=== PATIENT | male | born 1965 | race Caucasian/White ===

== ENCOUNTER 2017-12-17 10:54 | Emergency (ER) | payer OTHER, SELFPAY ==
[2017-12-17 10:57] VITALS: BP 128/80; PULSE 77; RESP 18; TEMP 36.2; O2SAT 97; BMI 35.7
--- NOTE | 2017-12-17 11:15 | ED.VISSUMM ---
- ER Visit Summary Date of Service: 12/17/17 Chief Complaint: Sore throat and ear pain History of Present Illness: The patient is a 52 M who presents with sore throat and ear pain that has been getting worse over the past 3 days. Patient states his pain is worse with swallowing. Patient states the pain is constant and localized to the throat and both ears. Patient admits to a mild headache. Patient describes the pain as aching. Patient denies any nausea or vomiting. Patient denies any chest pain or shortness of breath. Patient admits to a nonproductive cough. Physical Examination: Vital signs are stable. Patient is afebrile. Patient is in no acute distress. The left tympanic membrane is erythematous. The right tympanic membrane is a mild effusion. Oropharynx is mildly erythematous with postnasal drainage. Nasal mucosa is pink and moist. Neck is supple. Trachea is midline. There is some mild anterior cervical lymphadenopathy. Heart was regular rate and rhythm. Lungs are clear and equal bilateral. The remaining physical exam is within normal limits. Emergency Department Course and Treatment: Patient was given prescriptions for amoxicillin and Claritin-D. Patient was instructed to drink plenty of fluids. Patient was instructed to follow-up with his primary care physician in 7-10 days. Patient understood and was agreeable with the plan. All questions were answered. Disposition: Discharge home Impression: Left otitis media This note was generated with [employer] dictation software. It may contain incorrect words, spelling, and punctuation that were not noted in review of the chart prior to signing ED Disposition - Plan for ED Patient: Disposition: Home or Assisted Living Chief Complaint: Sore Throat Diagnosis: Left otitis media Instructions: ED Otitis Media Serous Adult Prescriptions: Loratadine/Pseudo 240/10 [Claritin-D 24 Hr] 1 tab PO DAILY #10 tab Amoxicillin 500 mg PO TID #30 tab Referrals: Nerissa Pearson MD [Primary Care Provider] -
[2017-12-17 12:12] VITALS: BP 115/86; PULSE 96; RESP 16; TEMP 36.6; O2SAT 97
== END 2017-12-17 12:13 | disposition home or self-care (01) ==
PROVIDERS: Emergency Provider Emergency Medicine; Family Provider Family Medicine; PCP Family Medicine
DX: H66.92 Otitis media, unspecified, left ear (principal); I25.10 Atherosclerotic heart disease of native coronary artery without angina pectoris; I50.9 Heart failure, unspecified; I10 Essential (primary) hypertension; Z79.82 Long term (current) use of aspirin; Z79.899 Other long term (current) drug therapy
CPT/HCPCS: 99282

== ENCOUNTER → 2018-08-19 09:28 | Outpatient (CLI) | payer OTHER, SELFPAY ==
--- NOTE | 2018-08-19 09:44 | ECHOCS_ITS ---
Reason For Study: Chest pain, PAF Procedure This was a 2D Doppler, Color Flow transthoracic echocardiogram. Exam performed in department. Left Ventricle Normal size and thickness. The estimated ejection fraction is 65 %. Normal diastology for age. No regional wall motion abnormalities noted. Right Ventricle Normal size and thickness. Normal systolic function. Atria Normal left atrium. Normal right atrium. Normal atrial septum. Mitral Valve The mitral valve is structurally normal. No prolapse or stenosis seen. Tricuspid Valve Normal tricuspid valve. Unable to estimate RV systolic pressure due to inadequate jet, pulmonary artery pressure probably normal. Aortic Valve Normal aortic valve. Trisinus/trileaflet aortic valve. Pulmonic Valve The pulmonic valve is not well visualized. Great Vessels Normal aortic root. Normal arch. Normal inferior vena cava. Inferior vena cava collapse with sniff. Pericardium/Pleural No pericardial effusion. Medication 22 gauge I.V. with prn adaptor inserted into right arm. Diluted definity 4ml given slow IV push to enhance endocardial definition. MMode/2D Measurements & Calculations LVIDd: 4.9 cm IVSd: 1.1 cm Ao root diam: 3.2 cm LVIDs: 3.0 cm LVPWd: 1.1 cm RVDd: 3.3 cm FS: 38.8 % LAV(MOD-bp): 37.0 ml LA A4 area: 15.8 cm2 LA dimension(2D): 3.7 cm LAV(MOD-bp) Indexed: 16.6 ml/m2 LAV(MOD-sp2): 33.7 ml LAV(MOD-sp4): 37.8 ml RA A4 area: 14.7 cm2 Doppler Measurements & Calculations MV E max marco: 68.4 cm/sec Lat Peak E' Marco: 8.0 cm/sec Med Peak E' Marco: 7.4 cm/sec MV A max marco: 49.6 cm/sec E/E' lat: 8.5 E/E' med: 9.3 MV E/A: 1.4 Ao V2 max: 119.6 cm/sec LV V1 max: 102.3 cm/sec PA V2 max: 113.5 cm/sec Ao max P.7 mmHg LV V1 max P.2 mmHg Interpretation Summary The estimated ejection fraction is 65 %. Normal diastology for age. Unable to estimate RV systolic pressure due to inadequate jet, pulmonary artery pressure probably normal. Compared to echo report dated 10/03/2017, no appreciable changes noted. The study was technically difficult. Contrast injection was performed. Ordering Physician: JULIETA DOW Referring Physician: Nerissa Pearson Performed By: Jennifer Mann RDCS
== END ==
PROVIDERS: Family Provider Family Medicine; PCP Family Medicine
DX: I48.0 Paroxysmal atrial fibrillation (principal)
CPT/HCPCS: 93306; Q9957; A4216; C8929

== ENCOUNTER → 2018-12-23 06:40 | Outpatient (CLI) | payer OTHER, SELFPAY ==
[2018-11-20 11:13] VITALS: BMI 38.2
--- NOTE | 2018-12-23 06:46 | ECHOCS_ITS ---
Reason For Study: CHEST PAIN Procedure This was a 2D Doppler, Color Flow transthoracic echocardiogram. The study was technically difficult. Contrast injection was performed. Exam performed in department. Left Ventricle Normal LV size. Left ventricular systolic function is normal. The estimated ejection fraction is 55 %. Diastolic function is indeterminate. No regional wall motion abnormalities noted. Right Ventricle Normal RV size. Normal systolic function. Atria The left atrium is mildly enlarged. Normal right atrium. No doppler evidence for ASD. Mitral Valve There is no mitral annular calcification. Normal mitral valve. Trivial mitral valve insufficiency. Tricuspid Valve Normal tricuspid valve. Trivial tricuspid valve insufficiency. Unable to estimate RV systolic pressure/pulmonary artery pressure due to technically difficult study. Aortic Valve Trisinus/trileaflet aortic valve. Normal aortic valve. Pulmonic Valve The pulmonic valve is not well visualized. Trivial eccentric pulmonic valve insufficiency. Great Vessels Normal sized aortic root. Pericardium/Pleural No pericardial effusion. Medication Diluted definity 3ml given slow IV push to enhance endocardial definition. MMode/2D Measurements & Calculations LVIDd: 4.8 cm IVSd: 1.1 cm Ao root diam: 3.2 cm LVIDs: 3.4 cm LVPWd: 1.0 cm RVDd: 3.7 cm FS: 30.3 % LAV(MOD-bp): 49.3 ml LVAd ap4: 32.4 cm2 SV(MOD-sp4): 54.0 ml LAV(MOD-bp) Indexed: 21.7 ml/m2 EDV(MOD-sp4): 105.2 ml LAV(MOD-sp2): 44.3 ml EDV(sp4-el): 110.0 ml LAV(MOD-sp4): 53.9 ml LVAs ap4: 21.2 cm2 ESV(MOD-sp4): 51.2 ml ESV(sp4-el): 52.0 ml EF(MOD-sp4): 51.3 % EF(sp4-el): 52.7 % SV(sp4-el): 57.9 ml LA A4 area: 19.5 cm2 LA dimension(2D): 4.8 cm RA A4 area: 12.2 cm2 Time Measurements MV dec time: 0.21 sec Doppler Measurements & Calculations MV E max marco: 59.6 cm/sec Lat Peak E' Marco: 8.7 cm/sec Med Peak E' Marco: 10.2 cm/sec MV A max marco: 53.1 cm/sec E/E' lat: 6.9 E/E' med: 5.8 MV E/A: 1.1 Ao V2 max: 130.5 cm/sec LV V1 max: 111.3 cm/sec PA V2 max: 111.6 cm/sec Ao max P.8 mmHg LV V1 max P.0 mmHg Interpretation Summary The study was technically difficult. Contrast injection was performed. Left ventricular systolic function is normal. The estimated ejection fraction is 55 %. The left atrium is mildly enlarged. Trivial mitral valve insufficiency. Trivial tricuspid valve insufficiency. Trivial eccentric pulmonic valve insufficiency. Unable to estimate RV systolic pressure/pulmonary artery pressure due to technically difficult study. Diastolic function is indeterminate. Ordering Physician: Yuri Draper Referring Physician: MARY JANE GOLDMAN Performed By: Anay Ac RDCS
--- NOTE | 2018-12-23 09:21 | STRESSREP_ITS ---
Stress Test Report Date: 12-23-18 Procedure: Pharmacologic stress nuclear imaging study Indications: Chest pain; atrial fibrillation; status post EPS/RFA Consent: Per the patient Procedure: The patient underwent pharmacologic (Regadenoson) evaluation with a peak heart rate of 94 beats per minute (56% predicted maximal heart rate) and a peak blood pressure of 138/82 mmHg. The baseline ECG demonstrated sinus rhythm. The peak pharmacologic ECG demonstrated no obvious ECG changes. There were no cardiac dysrhythmias pretest, during pharmacologic infusion, or recovery. There was no complaint of chest discomfort during pharmacologic infusion or recovery. The examination was discontinued secondary to completion of protocol. Impression: 1. Pharmacologic (Regadenoson) evaluation 2. Peak pharmacologic ECG with no obvious ECG changes. 3. There were no cardiac dysrhythmias pretest, during pharmacologic infusion, or recovery. 4. Nuclear images pending Myocardial perfusion imaging study: Technique: The patient was injected with 14.8 millicuries of technetium 99m Cardiolite and subsequently rest SPECT Cardiolite nuclear imaging was obtained in the horizontal long, vertical long, and short axis views. The patient underwent pharmacologic (Regadenoson) evaluation with a peak heart rate of before beats per minute (56 % percent predicted maximal heart rate) and a peak blood pressure of 138/82 mmHg. The patient was injected with 44.6 millicuries of technetium 99m Cardiolite and subsequently stress SPECT Cardiolite nuclear imaging was obtained in the horizontal long, vertical long, and short axis views. A gated Cardiolite study at peak stress was obtained. Interpretation: Rest and stress SPECT Cardiolite nuclear imaging status post realignment and normalization correction demonstrate the appearance of extracardiac/gastrointestinal tracer uptake near the inferior segments. At rest and stress there appears to be areas of diminished tracer uptake near the basal inferoseptal and inferior segments without significant change. Status post stress there appears to be an area of diminished tracer uptake in portions of the mid to distal inferior segments/lateral apical segments. There is also notation of a small area of subtle diminished tracer uptake near the apical segments being somewhat more prominent on the resting views as opposed to the stress views. There is end systolic thickening and brightening. The gated Cardiolite study demonstrates myocardial thickening and inward wall motion. The reported LVEF is 63 %. Impression: 1. Rest and stress SPECT Cardiolite nuclear imaging demonstrate myocardial perfusion changes compatible with a combination of soft tissue attenuation/artifact and potentially shifting soft tissue attenuation/artifact being somewhat more prominent at rest as opposed to stress with respect to a small area near the apical segments, however, there are post stress myocardial perfusion changes noted in the mid to distal inferior/lateral apical segments potentially compatible shifting soft tissue attenuation/artifact although an element of stress-induced myocardial ischemia cannot be excluded. 2. The gated Cardiolite study reports an LVEF of 63 %. This note was generated with [employer] software. It may contain incorrect words, spelling, and punctuation that were not noted in checking the note before signing.
== END ==
PROVIDERS: Referring Provider Internal Medicine Cardiovascular Disease; Visit Provider Internal Medicine Cardiovascular Disease
DX: I48.0 Paroxysmal atrial fibrillation (principal); I42.9 Cardiomyopathy, unspecified; I50.21 Acute systolic (congestive) heart failure; I34.0 Nonrheumatic mitral (valve) insufficiency; Z98.890 Other specified postprocedural states; Z86.79 Personal history of other diseases of the circulatory system
CPT/HCPCS: 78452; 93017; 93306; A9500; Q9957; A4216; C8929; J2785

== ENCOUNTER → 2018-12-29 11:04 | Outpatient (CLI) | payer OTHER, SELFPAY ==
[2018-12-29 10:19] VITALS: BMI 37.5
--- NOTE | 2018-12-29 11:38 | RAD_ITS ---
HISTORY: CHEST PAIN, ABNORMAL STRESS TEST EXAM:XR Chest 2 Views COMPARISON: 01/24/2017 FINDINGS: No significant change. Normal heart size. Bibasilar mild interstitial thickening. No vascular congestion or acute infiltrate. Redemonstration of AP window and left hilar small calcified lymph nodes compatible with benign granulomatous change. Chronic mild anterior wedge deformity of approximately the T8 vertebral body. RAD/Chest PA and Lateral IMPRESSION: 1. No acute cardiopulmonary disease. No significant interval change. 2. Old granulomatous disease. at 0649 Reported and signed by: Chadwick Bailon MD Electronically Signed: Chadwick Bailon, at 6:48 EDT Tel , Service support ,
[2018-12-29 12:09] LABS: Hematocrit 46.2 % (40-54); Hemoglobin 14.9 g/dl (13.0-16.5); Mean Corp Hgb Conc 32.3 g/gl (32-36); Mean Corpuscular Hgb 30.8 pg (27.0-32.0); Mean Corpuscular Volume 95.7 fL (80-94); Platelet Count 224 K/mm3 (150-450); RBC Distribution Width CV 12.6 % (11.6-14.6); RBC Distribution Width SD 44.4 fl (35.1-43.9); Red Blood Count 4.83 M/mm3 (4.6-6.2); White Blood Count 6.4 K/mm3 (4.4-11.0)
[2018-12-29 12:12] LABS: Scan Indicated on CBC? Y/N NO
[2018-12-29 12:29] LABS: International Normalized Ratio 1.1; Prothrombin Time (Protime)PT. 13.7 SECONDS (11.7-14.9)
[2018-12-29 12:30] LABS: Partial Thromboplast Time 29.9 Seconds (24.1-36.2)
[2018-12-29 12:36] LABS: Anion Gap 4 (5-15); BUN 18 mg/dL (7-18); BUN/Creat Ratio 19.8 RATIO (10-20); Calcium,Total 9.3 mg/dL (8.5-10.1); Chloride 108 mmol/L (98-107); Creatinine, Serum 0.91 mg/dL (0.70-1.30); EST Glomerular Filtration Rate 92 mL/min (>60); Est Glom Filt Rate - Afr Amer 111 mL/min (>60); Glucose 97 mg/dL (74-106); Potassium 4.4 mmol/L (3.5-5.1); Sodium Level 143 mmol/L (136-145)
== END ==
PROVIDERS: Referring Provider Internal Medicine Cardiovascular Disease; Visit Provider Internal Medicine Cardiovascular Disease
DX: R06.02 Shortness of breath (principal); R07.9 Chest pain, unspecified; R94.39 Abnormal result of other cardiovascular function study; I48.0 Paroxysmal atrial fibrillation; I42.9 Cardiomyopathy, unspecified
CPT/HCPCS: 36415; 71046; 80048; 85027; 85610; 85730

== ENCOUNTER 2019-01-06 07:34 | Day surgery (SDC) | payer OTHER, SELFPAY ==
[2018-11-20 11:13] VITALS: BMI 38.2
[2018-12-29 10:19] VITALS: BMI 37.5
--- NOTE | 2018-12-29 14:44 | HP_ITS ---
HPI HPI Surgical H&P: Yes Details: ROSHAN PACE, is a 53 M who presents to the office today for an outpatient cardiovascular follow up. He has a history of atrial dysrhythmia with atrial fibrillation/flutter with EPS/RFA procedure in December 2016, cardiomyopathy, and mitral valve insufficiency. His echocardiogram showed ejection fraction of 55%. His nuclear stress test showed that an area of stress-induced myocardial ischemia cannot be excluded. Because of his stress test result, he will undergo a left heart catheterization for further evaluation. Pt denies arm, jaw, or neck discomfort. His exercise tolerance is stable. He states continual chest pain and SOB intermittently with exertion and without exertion. Pt denies symptoms of CHF, palpitations, lightheadedness, dizziness, near syncopal or syncopal episodes. Pt denies edema or claudication issues. Pt. denies orthopnea, PND, fever, chills, blood in urine, blood in stool, myalgia, or unexplainable fatigue. He states having a vein in the back of [his] leg that will buildup and burst. This is with his right leg. He states this occurred recently and stopped with pressure, but took a long time. He is not interested in seeing a Vascular surgeon. Intake Vital Signs 12/29/18 Height 5 ft 9 in 12/29/18 Weight: 254 lb 12/29/18 Body Mass Index (BMI) 37.5 12/29/18 Blood Pressure 108/66 12/29/18 Blood Pressure Location Lt brachial 12/29/18 Blood Pressure Position Sitting 12/29/18 Respiratory Rate 14 12/29/18 Pulse Rate 80 12/29/18 Pulse Source Auscultation 12/29/18 Body Mass Index (BMI) 38.2 Intake Visit Reasons: Update [employer] Required: No Accompanied by: None Is patient in pain?: No Allergies lisinopril Adverse Reaction (Severe, Verified 12/29/18 10:25) cough Medications Aspirin E.C. [Ecotrin] 81 mg PO DAILY@0800 10/22/16 [History Confirmed 12/29/18] atorvastatin 20 mg tablet 20 mg PO QHS #30 tab 11/20/18 [Rx Confirmed 12/29/18] carvedilol 12.5 mg tablet 12.5 mg PO BID #60 tab 11/20/18 [Rx Confirmed 12/29/18] furosemide 20 mg tablet 20 mg PO QDAY #30 tab 11/20/18 [Rx Confirmed 12/29/18] potassium chloride ER 20 mEq tablet,extended release 20 meq PO DAILY #30 tab 11/20/18 [Rx Confirmed 12/29/18] spironolactone 25 mg tablet 25 mg PO DAILY #30 tab 11/20/18 [Rx Confirmed 12/29/18] clopidogrel 75 mg tablet 75 mg PO DAILY #30 tab 12/29/18 [Rx Confirmed 12/29/18] Ejection fraction %: 55 to 59 PFSH Medical History SOB (shortness of breath) (Acute) Chest pain (Acute) Abnormal stress test (Acute) Nonrheumatic mitral (valve) insufficiency (Chronic) Paroxysmal atrial fibrillation (Chronic) Obesity (Chronic) Low HDL (under 40) (Chronic) Pericardial effusion (Acute) Cardiomyopathy (Chronic) Systolic CHF (Chronic) Surgical History History of cardiac radiofrequency ablation (Resolved ~12/2016) Family History Father Myocardial infarction, Onset Age: 52 Social History Smoking Status: Never smoker alcohol intake: never substance use type: does not use caffeine: Yes (occasional) ROS Const Const: Negative for fatigue, weakness, body ache, fever(s) or chills ENT ENT: Negative for dizziness Cardio Chest Pain: Yes Palpitations: No Edema: None Muscle aches with walking: None Resp Respiratory: Positive for SOB with activity; negative for SOB at rest, SOB orthopnea\SOB lying down or paroxysmal nocturnal dyspnea GI GI: Negative nausea, vomiting blood/hematemesis, bright, red blood in stools or black,tarry stools : Negative for hematuria or frequent nighttime urination/ nocturia Musc Musc: Negative for muscle aches/ myalgia Skin Skin: Negative non-healing lesions or rash Neuro Neuro: Negative for dizziness, lightheadedness, near syncope, syncope, orthostatic symptoms or weakness Endo Endo: Negative for fatigue Allergy Allergy/Immunology: Negative for rash Cardiology Exam Const Appearance: cooperative, healthy appearing, comfortable and no acute distress Nutritional Appearance: well nourished and obese Orientation: alert, awake and oriented x3 Head Head: normal to inspection Ears: hearing grossly normal bilaterally Nose: external nose normal Face and Sinus: face symmetric Mouth: oral mucosae normal Eyes General: appearance normal, both eyes and all related structures Eyelids: eyelids normal EOM: EOM intact bilaterally Neck Neck: normal visual inspection and no JVD Carotids: normal carotid upstroke Chest Chest inspection: normal inspection of the chest, symmetric chest movement and normal respiratory effort; negative cough Auscultation: Bilateral: Clear to Auscultation Cardio Rate: regular rate Rhythm: regular rhythm Heart sounds: S1 normal and S2 normal; negative rub, gallop or murmur GI GI: normal to inspection and obese Neuro General: alert, awake, oriented x3 and CN's II-XI intact bilaterally Skin Skin: no rashes or lesions noted Extremities Pulses: Normal: Right Posterior Tibial Pulse, Left Posterior Tibial Pulse, Right Radial Pulse, Left Radial Pulse Lower Extremity Edema: None: Bilateral Psych Psychological: normal affect Assessment & Plan 1. Chest pain, unspecified type R07.9 Plan Patient continues to have chest pain with typical and atypical features. His most recent nuclear stress test from November 2018 showed an area of stress-induced myocardial ischemia cannot be excluded. He will undergo further evaluation with a left heart catheterization. Based on results, further recognition will be made. 2. SOB (shortness of breath) R06.02 Plan He continues to have shortness of breath with exertion and at rest. His most recent echocardiogram from November 2018 showed ejection of 55%, mildly enlarged left atrium, and trivial valvular insufficiency. At this time, he will proceed with left heart catheterization further recommendation will be made based on results of this test. 3. Paroxysmal atrial fibrillation I48.0 Plan He denies any symptomatic recurrence. He has been on antiarrhythmic and anticoagulation in the past. At this time his heart rate is well controlled. He will continue with current beta-brad and we will continue to monitor. 4. Cardiomyopathy, unspecified type I42.9 Plan As noted above his most recent echocardiogram showed ejection fraction 55%. He will continue with Coreg, Lasix, and spironolactone. Based on results of his heart catheterization further recommendations will be made. At this time, he will continue current medications and we will continue to monitor. Plan Detail Other Medications New: clopidogrel 75 mg PO DAILY 30 tabs 11RF Additional Comments Thank you for allowing us to participate in the patient's plan of care, if you have any questions please do not hesitate to call. This note was generated using a voice recognition system and there may be incorrect words, spelling, or punctuation that were not noted upon reviewing the office note prior to saving. Coding Level of Care Code Off vis,est,level 3 Diagnoses Chest pain, unspecified type R07.9 ??Chest pain type: unspecified SOB (shortness of breath) R06.02 Paroxysmal atrial fibrillation I48.0 Cardiomyopathy, unspecified type I42.9 ??Cardiomyopathy type: unspecified Coding Level of Care Code Off vis,est,level 3 Diagnoses Chest pain, unspecified type R07.9 ??Chest pain type: unspecified SOB (shortness of breath) R06.02 Paroxysmal atrial fibrillation I48.0 Cardiomyopathy, unspecified type I42.9 ??Cardiomyopathy type: unspecified Supplemental Info Supplemental Information Echocardiogram from 12/23/18: Interpretation Summary The study was technically difficult. Contrast injection was performed. Left ventricular systolic function is normal. The estimated ejection fraction is 55 %. The left atrium is mildly enlarged. Trivial mitral valve insufficiency. Trivial tricuspid valve insufficiency. Trivial eccentric pulmonic valve insufficiency. Unable to estimate RV systolic pressure/pulmonary artery pressure due to technically difficult study. Diastolic function is indeterminate. Nuclear stress test from 12/23/18: Impression: 1. Pharmacologic (Regadenoson) evaluation 2. Peak pharmacologic ECG with no obvious ECG changes. 3. There were no cardiac dysrhythmias pretest, during pharmacologic infusion, or recovery. 4. Nuclear images pending Impression: 1. Rest and stress SPECT Cardiolite nuclear imaging demonstrate myocardial perfusion changes compatible with a combination of soft tissue attenuation/artifact and potentially shifting soft tissue attenuation/artifact being somewhat more prominent at rest as opposed to stress with respect to a small area near the apical segments, however, there are post stress myocardial perfusion changes noted in the mid to distal inferior/lateral apical segments potentially compatible shifting soft tissue attenuation/artifact although an element of stress-induced myocardial ischemia cannot be excluded. 2. The gated Cardiolite study reports an LVEF of 63 %. Diagnostics Electrocardiogram 11/20/18 Echocardiogram 12/23/18 Stress Test Nuclear Medicine 12/23/18 Stress Test 12/23/18 Chest X-Ray 12/29/18
[2019-01-05 08:45] VITALS: BMI 37.5
--- NOTE | 2019-01-06 10:06 | CL.D_ITS ---
Patient Name: ROSHAN PACE Study Date: 01/06/2019 Performing: Yuri Draper MD Ht: 68.89 inches 175 cm : 1965 Wt: 253.53 lbs 115 kg Age: 53 Gender: male BSA: 2.28 PROCEDURE(S) PERFORMED [id number]/LV CLINICAL PROFILE AND INDICATIONS Indications: Suspected CAD Heart Failure: None Stress/Imaging Stress Test w/SPECT MPI: Yes Result: PositiveStress Test with SPECT MPI: Positive Angina Classification Anginal Classification w/in 2 Weeks: CCS III CAD Presentations: Other: Chest Pain; Dyspnea CONCLUSIONS Elevated Left Ventricular End Diastolic Pressure Normal LV size, wall motion,and systolic function LVEF: by LV gram 60 % Normal coronary arteries Mitral Valve Insufficiency Trace (PVC induced) RECOMMENDATIONS Risk factor modification Medical therapy DESCRIPTION OF PROCEDURE The patient arrived to the procedure lab. The risks and benefits of the procedure as well as a full d escription of our services here and current unavailability of surgical backup were fully explained to the patient and/or their significant other prior to the catheterization. The Timeout was completed, verifying the correct patient and procedure. The patient's procedural site was prepped and draped in the usual fashion. Local anesthetic was given subcutaneously to right groin region with Lidocaine 2%. Using a modified Seldinger technique, arterial access was obtained via the right femoral artery, a 4 Fr sheath was inserted Left Coronary Artery selective angiography was performed in multiple views us ing a 4 Fr. JL5 catheter. Right Coronary Artery selective angiography was then performed in multiple views using a 4 Fr. 3DRC catheter. Left Ventriculography was performed in NGUYEN projection using a 4 Fr . Pigtail catheter. LV to AO pullback pressures were then recorded.The arterial sheath was pulled and manual compression applied until hemostasis is achieved. CORONARY ANGIOGRAPHY DOMINANCE: Right Dominant LEFT HEART ASSESSMENT Left Ventricular Ejection Fraction: by LV Gram 60 % Normal LV wall motion Elevated Left Ventricular End Diastolic Pressure LVEDP: 22 mmHg LEFT MAIN: Angiographically normal LEFT ANTERIOR DECENDING ARTERY: Angiographically normal CIRCUMFLEX ARTERY: Angiographically normal RIGHT CORONARY ARTERY: Angiographically normal VALVE FINDINGS: Normal Aortic Valve function Mitral Valve Insufficiency - Trace (PVC induced) AORTIC ROOT: Angiographically normal COMPLICATIONS No Complications PROCEDURE MEDICATIONS Versed 1 mg IV Oxygen: 2 L/min via nasal cannula SUMMARY OF HEMODYNAMIC DATA Time AIR REST ECG 07:50:36 AO 118/77 (98) SA 09:30:53 LV 125/15, 33 09:37:13 LV 124/7, 22 09:37:19 LV 119/21, 32 09:38:08 LV 119/7, 24 09:38:14 LVp 125/7, 23 09:38:20 AOp 129/71 (97) 09:38:25 Signed By Yuri Draper MD On 01/06/2019 10:05:48 Yuri Draper MD
== END 2019-01-06 14:10 | disposition home or self-care (01) ==
LOC: CLSP 07:35
PROVIDERS: Referring Provider Internal Medicine Cardiovascular Disease; Visit Provider Internal Medicine Cardiovascular Disease
DX: R07.9 Chest pain, unspecified (principal); R06.02 Shortness of breath; I48.0 Paroxysmal atrial fibrillation; I42.9 Cardiomyopathy, unspecified; I50.22 Chronic systolic (congestive) heart failure; E66.9 Obesity, unspecified; Z68.37 Body mass index [BMI] 37.0-37.9, adult; Z79.899 Other long term (current) drug therapy; Z79.82 Long term (current) use of aspirin; Z79.02 Long term (current) use of antithrombotics/antiplatelets; Z71.3 Dietary counseling and surveillance; R94.39 Abnormal result of other cardiovascular function study
CPT/HCPCS: 93458; 99152; 99153; J7040; C1769; C1894; Q9967

== ENCOUNTER 2024-05-27 14:46 | Emergency (ER) | payer OTHER, SELFPAY ==
[2024-05-27 14:46] VITALS: BP 114/79; PULSE 71; RESP 16; TEMP 36.8; O2SAT 96; BMI 38.0
--- NOTE | 2024-05-27 15:25 | EX.ED.VIS.UR ---
HPI HPI - URI History of Present Illness Chief Complaint: Cold Sx Informant: patient Onset/Context/Timing Onset: Days (3) Context: Sudden Onset Timing: Continuous Quality: Burning Location: Throat Worsened by: Swallowing and - (Coughing) Relieved by: - (Nothing) Associated Symptoms Associated Symptoms: Positive for Headache, Sinus Pressure, Myalgias and Nonproductive cough; Negative for Nasal Congestion, Nausea, Vomiting, Diarrhea, Shortness of Breath, Chest Pain, Hemoptysis or Productive Cough Narrative Narrative: Patient presents with sore throat and cough that has been getting worse over the past 3 days. Patient states it began rather suddenly. Patient states he has some sinus pressure and cough. Patient states that he has burning in his throat. Patient states it is worse with swallowing and coughing. Patient denies any fevers or chills. Patient does admit to some general myalgias. Patient admits to a cough but denies any sputum production. Patient denies any shortness of breath. Patient denies any chest pain. ROS ROS ED Constitutional Constitutional ED: Denies chills or fever(s) Eyes Eyes: Denies blurry vision or change in vision ENT ENT ED: Reports sore throat; Denies rhinorrhea Cardiovascular Cardiovascular: Denies chest pain or palpitations Respiratory/Chest Respiratory/Chest: Reports cough; Denies dyspnea or sputum Gastrointestinal Gastrointestinal: Denies nausea or vomiting Genitourinary Genitourinary ED: Denies dysuria or hematuria Musculoskeletal Musculoskeletal: Denies back pain or neck pain Integumentary Denies abscess or rash Neurologic Neurologic: Reports headache(s); Denies weakness Allergic/Immunologic Allergic/Immunologic ED: Denies mouth swelling or urticaria [facility] Medical History Status post left heart catheterization (LHC) (~01/06/19) SOB (shortness of breath) Chest pain Abnormal stress test Nonrheumatic mitral (valve) insufficiency Paroxysmal atrial fibrillation Obesity Low HDL (under 40) Pericardial effusion Systolic CHF Cardiomyopathy Home Medications ?Medication ?Instructions ?Recorded ?Last Taken ?Type aspirin 81 mg tablet,delayed 81 mg PO DAILY@0800 10/22/16 01/06/19 History release atorvastatin 20 mg tablet 20 mg PO QHS #30 tabs 11/20/18 Unknown Rx carvedilol 12.5 mg tablet (Coreg) 12.5 mg PO BID #60 tabs 11/20/18 01/06/19 Rx furosemide 20 mg tablet 20 mg PO QDAY #30 tabs 11/20/18 Unknown Rx potassium chloride 20 mEq 20 meq PO DAILY #30 tabs 11/20/18 Unknown Rx tablet,extended release spironolactone 25 mg tablet 25 mg PO DAILY #30 tabs 11/20/18 Unknown Rx clopidogrel 75 mg tablet 75 mg PO DAILY #30 tabs 12/29/18 01/06/19 Rx Allergy/AdvReac Type Severity Reaction Status Date / Time lisinopril AdvReac Severe cough Verified 05/27/24 14:48 Family History Father Myocardial infarction, Onset Age: 52 Surgical History History of cardiac radiofrequency ablation (~12/2016) Social History Smoking Status: Never smoker alcohol intake: never substance use type: does not use caffeine: Yes (occasional) EXAM Physical Exam Const Vital Signs: 05/27/24 14:46 Temperature 98.2 F Temperature Source Temporal Pulse Rate 71 Respiratory Rate 16 Blood Pressure 114/79 Blood Pressure Mean 90 Pulse Ox 96 Oxygen Delivery Method Room Air Positive well nourished and well developed General Appearance ED: well developed and NAD HEENT Reports moist mucous membranes normocephalic Throat: posterior oropharynx abnormal Positive for erythema; Negative for exudates Neck supple and no JVD Resp normal respiratory effort and clear to auscultation bilaterally Cardio Rate: regular rate Rhythm: regular rhythm GI non-tender and non-distended Palpation: soft Neuro oriented x3, CN's II-XII intact bilaterally and no sensory deficits noted Sensorium / Orientation: alert Motor Exam: strength 5/5 throughout Psych mental status grossly normal MDM MDM MDM Narrative Medical decision making narrative: Differential diagnosis includes viral pharyngitis, strep pharyngitis, viral upper respiratory infection, pneumonia, and sinusitis. Chest x-ray will be obtained to assess for pneumonia and bronchitis. Rapid strep will be obtained to assess for strep pharyngitis. COVID-19, influenza, and RSV PCR will be obtained to assess for viral illness. Lab Data Lab results narrative: Rapid strep was reviewed and was negative. COVID-19 PCR was reviewed and was positive. Influenza PCR was reviewed and was negative for influenza A and influenza B. RSV PCR was reviewed and was negative. Radiography Chest X-Ray - ED: 2 View, Read by ED Physician, Read by Radiologist and No Acute Disease Diagnostic Testing: Clinical Impression(s) from Imaging Studies Chest X-Ray 05/27/24 16:16 IMPRESSION: . There are findings consistent with COPD. There is no evidence of acute chest disease. Electronically Signed: Tod Jacques MD at 16:47 EDT , PA and lateral chest x-ray was obtained. There are 2 views. On my independent interpretation, lung watson show signs of COPD. There is normal cardiac silhouette. Bony thorax is normal. There is no acute process noted. Radiologist also interpreted the x-ray and agrees. Treatment and Re-Evaluation Narrative: Patient was advised of his findings. Patient was instructed to continue Tylenol and ibuprofen as needed for any aches or fevers. Patient was instructed to use throat lozenges as needed for his sore throat. Patient was instructed to drink plenty of fluids. Patient was instructed to follow-up with his primary care physician in 5 to 7 days. Patient understood and was agreeable with the plan. All questions were answered. Discharge Plan Triage Chief Complaint: Cold Sx ED Provider: Emir Perez Dx/Rx/DC Orders Clinical Impression: COVID-19, Obesity, Viral illness Instructions: Coronavirus Disease 2019 (COVID-19): Overview Prescriptions: No Action atorvastatin 20 mg tablet 20 mg PO QHS Qty: 30 11RF carvedilol [Coreg] 12.5 mg tablet 12.5 mg PO BID Qty: 60 11RF Rx Instructions: give with food (meal/snack) furosemide 20 mg tablet 20 mg PO QDAY Qty: 30 11RF potassium chloride 20 mEq tablet extended release 20 meq PO DAILY Qty: 30 11RF spironolactone 25 mg tablet 25 mg PO DAILY Qty: 30 11RF clopidogrel 75 mg tablet 75 mg PO DAILY Qty: 30 11RF aspirin 81 MG tablet 81 mg PO DAILY@0800 Stand Alone Forms: ED Work / School Excuse Primary Care Provider: ARIEL PLASCENCIA Referrals: ARIEL PLASCENCIA, [employer] [Primary Care Provider] - 5-7 Days Print Language: Khmer Disposition Disposition: Home, Self Care
--- NOTE | 2024-05-27 16:16 | RAD_ITS ---
STUDY: X-RAY CHEST REASON FOR EXAM: Male, 58 years old. Cough TECHNIQUE: Frontal and lateral views of the chest. COMPARISON: 12/29/2018. FINDINGS: There is hyperinflation of the lungs consistent with chronic obstructive lung disease (COPD). No infiltrates or effusions. There is no demonstrated pleural abnormality. Normal size heart. There are calcified mediastinal lymph nodes. Normal visualized pulmonary arteries. Normal visualized aortic arch and descending thoracic aorta. Normal visualized thoracic spine. Normal visualized ribs, clavicles, and shoulders. There is no demonstrated abnormality of the visualized soft tissue structures of the upper abdomen. RAD/Chest PA and Lateral IMPRESSION: . There are findings consistent with COPD. There is no evidence of acute chest disease. Electronically Signed: Tod Jacques MD at 16:47 EDT ,
== END 2024-05-27 18:14 | disposition home or self-care (01) ==
PROVIDERS: Emergency Provider Emergency Medicine; PCP Nurse Practitioner Family; Referring Provider Emergency Medicine; Visit Provider Emergency Medicine
DX: U07.1 COVID-19 (principal); I50.22 Chronic systolic (congestive) heart failure; I48.0 Paroxysmal atrial fibrillation; E66.9 Obesity, unspecified; B34.9 Viral infection, unspecified; Z79.899 Other long term (current) drug therapy; Z79.02 Long term (current) use of antithrombotics/antiplatelets
CPT/HCPCS: 71046; 87631; 87651; 99282

== ENCOUNTER → 2025-04-13 | Outpatient (CLI) | payer OTHER, SELFPAY ==
[2025-04-15 14:08] LABS: PSA, Free 0.58 ng/mL; PSA, Free % 17.5 % (.); PSA, Total Ultrasensitive 3.320 ng/mL (0.000-4.000)
== END | disposition home or self-care (01) ==
LOC: LAB 15:32
PROVIDERS: PCP Nurse Practitioner Family; Referring Provider Nurse Practitioner; Visit Provider Nurse Practitioner
DX: R97.20 Elevated prostate specific antigen [PSA] (principal)
CPT/HCPCS: 36415; 84153; 84154